=== PATIENT | female | born 1980 | race Two or more races ===

== ENCOUNTER 2017-07-21 04:44 | Inpatient (IN) | payer OTHER ==
[~2017-07-21] VITALS: Ht 162.6 cm; Wt 66.4 kg
[~2017-07-21 04:44] MED LIST: PRENATAL TABLE1 EAC3 PO
[2017-07-21 05:22] VITALS: BP 115/77
[2017-07-21 06:35] LABS: EOSINOPHIL (%) 1.1 % (0-5); EOSINOPHIL COUNT 0.1 K/uL (0-0.3); HEMATOCRIT 39.5 % (36.0-46.0); IMMATURE GRANULOCYTE (%) 0.5 % (0.0-0.7); INSTRUMENT ABS NEUTROPHIL CT 3.1 K/uL; LYMPHOCYTE COUNT 1.5 K/uL (1.0-2.8); MCH 27.1 PG (29.0-34.0); MCHC 31.6 G/DL (30.0-36.0); MCV 85.7 FL (83-99); MONOCYTE (%) 13.5 % (3-12); MONOCYTE COUNT 0.8 K/uL (0-0.8); NEUTROPHIL (%) 56.7 % (45-76); NEUTROPHIL COUNT 3.1 K/uL (1.8-6.4); RBC DIS.WIDTH-CV 15.4 % (11.8-14.6); RBC DIS.WIDTH-SD 48.4 % (39-53); RED BLOOD COUNT 4.61 M/uL (3.80-5.20); WHITE BLOOD COUNT 5.6 K/uL (4.1-10.2)
[2017-07-21 07:28] LABS: PLATELET COUNT 134 K/uL (156-360)
[2017-07-21 10:45] VITALS: BP 98/57
[2017-07-21 11:52] VITALS: BP 103/64
[2017-07-21 12:30] LABS: HEMATOCRIT 37.5 % (36.0-46.0); MCH 27.3 PG (29.0-34.0); MCV 85.4 FL (83-99); MEAN PLAT.VOLUME 12.5 uM^3 (9.5-12.4); PLATELET COUNT 131 K/uL (156-360); RBC DIS.WIDTH-CV 15.3 % (11.8-14.6); RED BLOOD COUNT 4.39 M/uL (3.80-5.20)
[2017-07-21 13:50] VITALS: BP 111/62
[2017-07-21 15:58] VITALS: BP 109/64
[2017-07-21 17:48] VITALS: BP 104/67
[2017-07-21 18:00] LABS: EOSINOPHIL (%) 0.1 % (0-5); HEMATOCRIT 31.7 % (36.0-46.0); IMMATURE GRANULOCYTE (%) 0.3 % (0.0-0.7); INSTRUMENT ABS NEUTROPHIL CT 5.3 K/uL; LYMPHOCYTE COUNT 1.4 K/uL (1.0-2.8); MCH 28.3 PG (29.0-34.0); MCHC 32.8 G/DL (30.0-36.0); MCV 86.1 FL (83-99); MEAN PLAT.VOLUME 12.2 uM^3 (9.5-12.4); MONOCYTE (%) 11.7 % (3-12); MONOCYTE COUNT 0.9 K/uL (0-0.8); NEUTROPHIL (%) 69.3 % (45-76); NEUTROPHIL COUNT 5.3 K/uL (1.8-6.4); PLATELET COUNT 114 K/uL (156-360); RBC DIS.WIDTH-CV 15.4 % (11.8-14.6); RBC DIS.WIDTH-SD 48.7 % (39-53); RED BLOOD COUNT 3.68 M/uL (3.80-5.20); WHITE BLOOD COUNT 7.6 K/uL (4.1-10.2)
[2017-07-22 07:10] VITALS: BP 122/65
[2017-07-22 07:44] LABS: EOSINOPHIL (%) 0.6 % (0-5); HEMATOCRIT 32.8 % (36.0-46.0); IMMATURE GRANULOCYTE (%) 0.3 % (0.0-0.7); INSTRUMENT ABS NEUTROPHIL CT 5.2 K/uL; LYMPHOCYTE COUNT 1.1 K/uL (1.0-2.8); MCH 27.5 PG (29.0-34.0); MCHC 31.7 G/DL (30.0-36.0); MCV 86.8 FL (83-99); MEAN PLAT.VOLUME 12.1 uM^3 (9.5-12.4); MONOCYTE (%) 9.7 % (3-12); MONOCYTE COUNT 0.7 K/uL (0-0.8); NEUTROPHIL (%) 73.7 % (45-76); NEUTROPHIL COUNT 5.2 K/uL (1.8-6.4); PLATELET COUNT 115 K/uL (156-360); RBC DIS.WIDTH-CV 15.2 % (11.8-14.6); RBC DIS.WIDTH-SD 48.3 % (39-53); RED BLOOD COUNT 3.78 M/uL (3.80-5.20); WHITE BLOOD COUNT 7.1 K/uL (4.1-10.2)
[2017-07-22 11:25] VITALS: BP 105/66
[2017-07-22 14:10] VITALS: BP 115/60
[2017-07-23 08:03] VITALS: BP 107/65
[2017-07-23 14:27] VITALS: BP 102/62
[2017-07-23 22:13] VITALS: BP 122/56
[2017-07-24 08:01] VITALS: BP 101/59
[2017-07-24] MEDS ORDERED: GUAIFENESI100 MG/5 M PO (09:26)
[2017-07-24] MEDS ORDERED: DOCUSATE SODIU100 MG PO (09:26)
[2017-07-24] MEDS ORDERED: IBUPROFEN800 MG PO (09:26)
[2017-07-24] MEDS ORDERED: ENDOCET 5-3251 EACH PO (09:26)
== END 2017-07-24 12:25 | disposition home or self-care (01) | DRG 765 ==
LOC: 2WEST 04:44 → 2SOUTH 13:21 → 2WEST 07-23 09:02 → 2WESTNUR 07-23 09:03 → 2WEST 07-23 09:46
PROVIDERS: Obstetrics & Gynecology
PROC: 10D00Z1 Extraction of Products of Conception, Low, Open Approach (ICD-10-PCS; principal; 2017-07-21)
DX: O34.211 Maternal care for low transverse scar from previous cesarean delivery (principal); D62 Acute posthemorrhagic anemia; Z37.0 Single live birth; Z3A.37 37 weeks gestation of pregnancy; O69.81X1 Labor and delivery complicated by cord around neck, without compression, fetus 1; O99.02 Anemia complicating childbirth; D57.3 Sickle-cell trait; O32.8XX1 Maternal care for other malpresentation of fetus, fetus 1
CPT/HCPCS: 85025; 85025 91; 85027; 86900; 86901; J0690; J1200; J1885; J2274; J2405; J3010; J7120